=== PATIENT | male | born 1945 | race Caucasian/White ===

== ENCOUNTER → 2017-04-04 | Outpatient (CLI) | payer MEDICARE, BC, OTHER ==
[~2017-04-04] VITALS: Ht 172.7 cm; Wt 67.6 kg
[~2017-04-04] MED LIST: DULCOLAX S10 MG/SUPP RC; DULCOLAX TAB5 MG PO
[2017-04-04 13:19] VITALS: BP 159/90; PULSE 74
[2017-04-04 14:49] VITALS: BP 159/94; PULSE 67
[2017-04-04 15:05] VITALS: BP 167/93
== END ==
LOC: COL.RAD 12:53
DX: M48.06 Spinal stenosis, lumbar region (principal)
CPT/HCPCS: J3301

== ENCOUNTER 2017-04-10 10:30 | Outpatient (RCR) | payer MEDICARE, BC | END 2017-06-29 | LOC: MKS.ESL.PT | DX: M54.10 Radiculopathy, site unspecified (principal) | CPT/HCPCS: G0283-GP; G8978-GP; G8979-GP ==